=== PATIENT | male | born 1960 | race African-American/Black ===

== ENCOUNTER 2017-03-31 10:48 | Inpatient (IN) | payer OTHER ==
[~2017-03-31] VITALS: Ht 147.3 cm; Wt 95.5 kg
[2017-03-31] VITALS (15 sets, daily range): BP systolic 153–217; BP diastolic 98–153; PULSE 20–108; RESP 14–20; TEMP 96.5–97.6; O2SAT 97–100
[~2017-03-31 10:48] MED LIST: ASPI325T PO; LORT5TAB PO; NITR0.4S SL; Z.0.NO CURRENT MEDS
--- NOTE | 2017-03-31 11:25 | PD ---
HPI Chief Complaint: Cardiac Complaint Time Seen by Provider: 11:23 Travel History International Travel<30 days: No Contact w/Intl Traveler<30days: No Traveled to known affect area: No History of Present Illness HPI 56 year old male presents to the emergency department sent by his primary care physician, Dr. Barnett, for evaluation of intermittent chest pain. Patient states he has been having intermittent midsternal/epigastric pain for approximately one week. He cannot recall any aggravating or relieving factors. He saw his primary care physician, Dr. Barnett, this morning an EKG was performed. It was recommended that the patient come to the emergency department for further evaluation. He was given nitroglycerin 0.4 mg sublingually and one aspirin 325 mg by mouth. Patient states nitroglycerin did not do much for his symptoms. He states he did have some mild chest pain this morning, but states that he has no pain at this time. Patient points to more epigastric region when asked where his pain is. He denies any radiation of the pain. He denies shortness of breath. No nausea or vomiting. No diaphoresis. He reports history of ankle surgery. He states he is not currently on any prescribed medications. Patient does report drinking 2-3 beers daily. He denies any tobacco or illicit drug use. [facility] Past Medical History Medical History: Denies Significant Hx Chest Pain: Yes Diminished Hearing: No Hypertension: Yes Past Surgical History Surgical History: No Previous Surgery Social History Alcohol Use: Yes (2-3 beers daily) Tobacco Use: No Substance Use: No Allergies-Medications (Allergen,Severity, Reaction): Coded Allergies: No Known Allergies (Verified , 03/31/17) Reported Meds & Prescriptions Reported Meds & Active Scripts Active No Active Prescriptions or Reported Medications Review of Systems Except as stated in HPI: all other systems reviewed are Neg Physical Exam Narrative GENERAL: Well-nourished, well-developed male patient, afebrile. SKIN: Focused skin assessment warm/dry. HEAD: Normocephalic. Atraumatic. EYES: No scleral icterus. No injection or drainage. NECK: Supple, trachea midline. No JVD or lymphadenopathy. CARDIOVASCULAR: Regular rate and rhythm without murmurs, gallops, or rubs. RESPIRATORY: Breath sounds equal bilaterally. No accessory muscle use. Lungs sounds are clear to auscultation. GASTROINTESTINAL: Abdomen soft and nondistended. On exam, the patient has tenderness to the left upper quadrant and epigastric region to palpation. MUSCULOSKELETAL: No cyanosis, or edema. BACK: Nontender without obvious deformity. No CVA tenderness. Data Data Last Documented VS Vital Signs Date Time Temp Pulse Resp B/P Pulse Ox O2 Delivery O2 Flow Rate FiO2 03/31/17 13:12 95 14 182/123 98 Nasal Cannula 2 03/31/17 10:51 97.6 Orders Electrocardiogram (03/31/17 ) Electrocardiogram (03/31/17 11:20) Ckmb (Isoenzyme) Profile (03/31/17 11:20) Complete Blood Count With Diff (03/31/17 11:20) Comprehensive Metabolic Panel (03/31/17 11:20) Magnesium (Mg) (03/31/17 11:20) Prothrombin Time / Inr (Pt) (03/31/17 11:20) Act Partial Throm Time (Ptt) (03/31/17 11:20) Troponin I (03/31/17 11:20) Lipase (03/31/17 11:20) Chest, Single Ap (03/31/17 11:20) Ecg Monitoring (03/31/17 11:20) Bilateral Bp Monitoring (03/31/17 11:20) Iv Access Insert/Monitor (03/31/17 11:20) Oximetry (03/31/17 11:20) Oxygen Administration (03/31/17 11:20) Aspirin Chew (Aspirin Chew) (03/31/17 11:30) Sodium Chloride 0.9% Flush (Ns Flush) (03/31/17 11:30) Sodium Chlorid 0.9% 500 Ml Inj (Ns 500 M (03/31/17 11:30) Labetalol Inj (Trandate Inj) (03/31/17 12:30) CKMB (03/31/17 11:35) CKMB% (03/31/17 11:35) Admit Order (Ed Use Only) (03/31/17 13:10) Labetalol Inj (Trandate Inj) (03/31/17 13:15) Labs Laboratory Tests Test 03/31/17 11:35 White Blood Count 6.2 TH/MM3 Red Blood Count 5.01 MIL/MM3 Hemoglobin 15.1 GM/DL Hematocrit 46.0 % Mean Corpuscular Volume 91.9 FL Mean Corpuscular Hemoglobin 30.2 PG Mean Corpuscular Hemoglobin 32.9 % Concent Red Cell Distribution Width 14.4 % Platelet Count 153 TH/MM3 Mean Platelet Volume 11.6 FL Neutrophils (%) (Auto) 62.1 % Lymphocytes (%) (Auto) 31.0 % Monocytes (%) (Auto) 5.1 % Eosinophils (%) (Auto) 1.3 % Basophils (%) (Auto) 0.5 % Neutrophils # (Auto) 3.8 TH/MM3 Lymphocytes # (Auto) 1.9 TH/MM3 Monocytes # (Auto) 0.3 TH/MM3 Eosinophils # (Auto) 0.1 TH/MM3 Basophils # (Auto) 0.0 TH/MM3 CBC Comment AUTO DIFF Differential Comment AUTO DIFF CONFIRMED Platelet Estimate NORMAL Platelet Morphology Comment ENLARGED Prothrombin Time 10.7 SEC Prothromb Time International 1.0 RATIO Ratio Activated Partial 23.6 SEC Thromboplast Time Sodium Level 141 MEQ/L Potassium Level 4.3 MEQ/L Chloride Level 109 MEQ/L Carbon Dioxide Level 23.2 MEQ/L Anion Gap 9 MEQ/L Blood Urea Nitrogen 10 MG/DL Creatinine 0.92 MG/DL Estimat Glomerular Filtration 103 ML/MIN Rate Random Glucose 106 MG/DL Calcium Level 8.7 MG/DL Magnesium Level 1.5 MG/DL Total Bilirubin 0.5 MG/DL Aspartate Amino Transf 24 U/L (AST/SGOT) Alanine Aminotransferase 28 U/L (ALT/SGPT) Alkaline Phosphatase 90 U/L Total Creatine Kinase 159 U/L Creatine Kinase MB 3.0 NG/ML Troponin I 0.08 NG/ML Total Protein 7.5 GM/DL Albumin 3.3 GM/DL Lipase 118 U/L [facility] Medical Decision Making Medical Screen Exam Complete: Yes Emergency Medical Condition: Yes Medical Record Reviewed: Yes Interpretation(s) chest x-ray - CONCLUSION: 1. Advanced cardiomegaly. Differential Diagnosis Chest wall pain versus ACS versus anxiety versus pancreatitis versus diverticulitis versus pneumonia versus pneumothorax versus PE Narrative Course 56-year-old male presents to the emergency department sent by his primary care physician for evaluation of intermittent chest pain. On exam, the patient's tenderness to left upper quadrant and epigastric region on palpation. He was given nitroglycerin 1 and aspirin 325 mg by mouth. EKG shows sinus tachycardia , heart rate 122, patient has some mild ST depression in V2, with a new right bundle-branch block noted.. On exam, patient's heart rate is 90-100. CBC, CMP , CK, troponin, magnesium, lipase, PTT, PTT/INR, chest x-ray are ordered and pending. CBC shows no acute abnormality. CMP shows no acute abnormality. Lipase is 118. CK is 159. Troponin is 0.08. Magnesium is 1.5. Coags show no acute abnormality. Chest x-ray shows advanced cardiomegaly. Patient's blood pressure remained elevated while emergency department. Patient is given labetalol 10 mg IV. Due to elevated troponin, cardiology slot floor person is paged. [phone] - I spoke with Dr. Cardenas, release manager slot floor person, who will consult on patient. Due to atypical symptoms, he would like to hold off on Heparin gtt for now. Residents are paged for admission. Dr. Nguyễn accepted admission. Diagnosis Primary Impression: Chest pain Qualified Code: R07.9 - Chest pain, unspecified type Additional Impression: Elevated troponin Admitting Information Admitting Physician Requests: Admit Scripts No Active Prescriptions or Reported Lilian Sheppard Mar 31, 2017 11:24
[2017-03-31] MEDS ORDERED: ASPIRIN 81 MG CHEW TAB PO ONE (11:30)
[2017-03-31] MEDS ORDERED: SODIUM CHLORIDE 0.9% FLUSH 10 ML FLUSH IVF PRN (11:30)
[2017-03-31] MEDS ORDERED: SODIUM CHLORID 0.9% 500 ML INJ 500 ML IV ONE (11:30)
[2017-03-31 12:07] LABS: AUTOMATED NEUTROPHIL # 3.8 TH/MM3 (1.8-7.7); BASOPHIL % 0.5 % (0.0-2.0); EOSINOPHIL # 0.1 TH/MM3 (0-0.4); EOSINOPHIL % 1.3 % (0.0-4.0); LYMPHOCYTE # 1.9 TH/MM3 (1.0-4.8); MEAN CELL VOLUME 91.9 FL (80.0-100.0); MEAN CORPUSCULAR HEMOGLOBIN 30.2 PG (27.0-34.0); MEAN CORPUSCULAR HGB CONC 32.9 % (32.0-36.0); MONO % 5.1 % (0.0-8.0); NEUT % 62.1 % (16.0-70.0); PLATELET COUNT 153 TH/MM3 (150-450); RED BLOOD COUNT 5.01 MIL/MM3 (4.50-5.90); RED CELL DISTRIBUTION WIDTH 14.4 % (11.6-17.2); WHITE BLOOD COUNT 6.2 TH/MM3 (4.0-11.0)
--- NOTE | 2017-03-31 12:10 | RADRPT ---
EXAM DATE/TIME: 03/31/2017 11:35 [facility] COMPARISON: CHEST SINGLE AP, December 30, 2009, 2:21. INDICATIONS : Chest Pain/Pressure MEDICAL HISTORY : Abnormal EKG at 's office SURGICAL HISTORY : None. ENCOUNTER: Initial ACUITY: 1 day PAIN SCORE: 4/10 LOCATION: Bilateral chest FINDINGS: There is advanced cardiomegaly. There is no overt congestive failure. The lungs are clear. The osseou s structures are intact. CONCLUSION: 1. Advanced cardiomegaly. Justin Cruz MD on March 31, 2017 at 12:08 Board Certified Radiologist. This report was verified electronically.
[2017-03-31 12:12] LABS: HEMO FLAGS AUTO DIFF
[2017-03-31 12:17] LABS: APTT (PATIENT) 23.6 SEC (24.3-30.1); PROTHROMBIN TIME - PATIENT 10.7 SEC (9.8-11.6)
[2017-03-31 12:29] LABS: ALKALINE PHOSPHATASE 90 U/L (45-117); CREATINE KINASE 159 U/L (39-308); TOTAL BILIRUBIN ADULT 0.5 MG/DL (0.2-1.0)
[2017-03-31 12:30] LABS: ALT (GPT) 28 U/L (12-78); ANION GAP 9 MEQ/L (5-15); AST (GOT) 24 U/L (15-37); BICARBONATE 23.2 MEQ/L (21.0-32.0); BLOOD UREA NITROGEN 10 MG/DL (7-18); CHLORIDE 109 MEQ/L (98-107); GLOMERULAR FILTRATION RATE 103 ML/MIN (>89); MAGNESIUM 1.5 MG/DL (1.5-2.5); POTASSIUM 4.3 MEQ/L (3.5-5.1); SODIUM (NA) 141 MEQ/L (136-145)
[2017-03-31] MEDS ORDERED: LABETALOL HCL 100 MG/20 ML VIAL IV PUSH ONE ×2 (12:30→13:15)
[2017-03-31 12:42] LABS: PLATELET ESTIMATE SMEAR NORMAL (NORMAL); PLATELET MORPHOLOGY ENLARGED (NORMAL); SCAN/DIFF AUTO DIFF CONFIRMED
--- NOTE | 2017-03-31 13:31 | HHI.HP ---
[facility] Service Family Medicine Primary Care Physician No Primary Care Physician Admission Diagnosis chest pain, elevated troponin Diagnoses: International Travel<30 Days: No Contact w/Intl Traveler<30days: No Known Affected Area: No History of Present Illness 56-year-old male without a previous extensive history (however he has not seen a doctor for multiple years) presents with a one to two-week history of chest pain. He was interviewed with his sister in the room. Patient reports a history of 2 weeks of chest pain. The pain is 4 out of 10 in intensity. Nonradiating. It will last 2-3 minutes and go away. It comes on mostly when lifting objects. He typically gets this pain 2-3 times a day. Occasionally, he will get this pain while resting on his couch. He does sometimes get diaphoretic with this. His fever, chills, nausea. He has been getting short of breath with relatively minor exertion. He does not exercise regularly. (Chris Nguyễn MD R2) Review of Systems Constitutional: DENIES: Fatigue, Fever, Chills Eyes: DENIES: Blurred vision, Diplopia Ears, nose, mouth, throat: DENIES: Tinnitus, Hearing loss Respiratory: COMPLAINS OF: Shortness of breath, DENIES: Apneas, Cough Cardiovascular: COMPLAINS OF: Chest pain, DENIES: Syncope Gastrointestinal: DENIES: Abdominal pain, Black stools, Bloody stools, Constipation, Diarrhea, Nausea, Vomiting Neurologic: DENIES: Abnormal gait, Headache Psychiatric: DENIES: Anxiety, Confusion, Depression (Chris Nguyễn MD R2) Past Family Social History Past Medical History HLD Past Surgical History None Reported Medications Reported Meds & Active Scripts Active No Active Prescriptions or Reported Medications (Chris Nguyễn MD R2) Allergies: Coded Allergies: No Known Allergies (Verified , 03/31/17) Active Ordered Medications Active Medications Aspirin (Aspirin Chew) 81 mg ONCE ONCE PO; Start 03/31/17 at 11:30; Stop at 11:30; Status DC Bisacodyl (Dulcolax Supp) 10 mg DAILY PRN RECTAL; Start 03/31/17 at 14:00; Status UNV Flumazenil (Romazicon Inj) 0.2 mg Q1M PRN IV PUSH; Start 03/31/17 at 14:15; Status UNV Labetalol HCl (Trandate Inj) 10 mg ONCE ONCE IV PUSH Last administered on 12:28; Admin Dose 10 MG; Start 03/31/17 at 12:30; Stop 03/31/17 at 12:31; Status DC Labetalol HCl 10 mg 10 mg ONCE ONCE IV PUSH Last administered on 03/31/17 13: 27; Admin Dose 10 MG; Start 03/31/17 at 13:15; Stop 03/31/17 at 13:16; Status DC Lactulose (Lactulose Liq) 30 ml DAILY PRN PO; Start 03/31/17 at 14:00; Status UNV Lorazepam (Ativan Inj) 1 mg Q4H PRN IV PUSH; Start 03/31/17 at 14:15; Status UNV Lorazepam (Ativan Inj) 2 mg Q15M PRN IV PUSH; Start 03/31/17 at 14:15; Status UNV Lorazepam (Ativan Inj) 2 mg Q1H PRN IV PUSH; Start 03/31/17 at 14:15; Status UNV Lorazepam (Ativan Inj) 2 mg Q2H PRN IV PUSH; Start 03/31/17 at 14:15; Status UNV Lorazepam (Ativan) 1 mg Q4H PRN PO; Start 03/31/17 at 14:15; Status UNV Lorazepam (Ativan) 2 mg Q2H PRN PO; Start 03/31/17 at 14:15; Status UNV Magnesium Hydroxide (Milk Of Magnesia Liq) 30 ml Q12H PRN PO; Start 03/31/17 at 14:00; Status UNV Morphine Sulfate (Morphine Inj) 2 mg Q30M PRN IV; Start 03/31/17 at 14:00; Status UNV Naloxone HCl (Narcan Inj) 0.4 mg UNSCH PRN IV; Start 03/31/17 at 14:00; Status UNV Nitroglycerin (Nitrostat Sl) 0.4 mg Q5M PRN SL; Start 03/31/17 at 14:00; Status UNV Ondansetron HCl (Zofran Inj) 4 mg Q6H PRN IV; Start 03/31/17 at 14:00; Status UNV Senna/Docusate Sodium (Ashwini-Colace) 1 tab BID PO; Start 03/31/17 at 21:00; Status UNV Sennosides (Senokot) 17.2 mg Q12H PRN PO; Start 03/31/17 at 14:00; Status UNV Sodium Chloride (NS 1000 ml Inj) 1,000 ml @ 100 mls/hr Q10H IV; Start 03/31/17 at 13:56; Status UNV Sodium Chloride (NS 500 ml Inj) 500 ml @ 500 mls/hr BOLUS ONCE IV Last administered on 03/31/17t 11:50; Admin Dose 500 MLS/HR; Start 03/31/17 at 11:30 ; Stop 03/31/17 at 12:29; Status DC Sodium Chloride (NS Flush) 2 ml BID IV FLUSH; Start 03/31/17 at 21:00; Status UNV Sodium Chloride (NS Flush) 2 ml UNSCH PRN IV FLUSH; Start 03/31/17 at 14:00; Status UNV Sodium Chloride 2 ml 2 ml UNSCH PRN IVF; Start 03/31/17 at 11:30 Family History Mom: CAD at 32- Father: OK at 45-46 Brother: OK at 67 No children Social History Never smoker. Alcohjol daily. 4-5 beers a day. Lives with sister in house. Works: [employer] at [employer]. (Chris Nguyễn MD R2) Physical Exam Vital Signs Vital Signs Date Time Temp Pulse Resp B/P Pulse Ox O2 Delivery O2 Flow Rate FiO2 03/31/17 13:12 95 14 182/123 98 Nasal Cannula 2 03/31/17 12:52 190/138 03/31/17 12:52 197/135 03/31/17 12:51 97 190/138 03/31/17 11:51 100 Nasal Cannula 1 03/31/17 11:51 100 Nasal Cannula 1 03/31/17 11:03 120 16 96 Room Air 03/31/17 10:51 97.6 108 17 216/145 98 Room Air Physical Exam GENERAL: This is a pleasant male resting comfortably in bed. No acute distress. SKIN: Warm and diaphoretic. No rashes HEAD: Atraumatic. Normocephalic. No temporal or scalp tenderness. EYES: Pupils equal round and reactive. Extraocular motions intact. Conjunctival injection ENT: Nose without bleeding, purulent drainage or septal hematoma. Throat without erythema, tonsillar hypertrophy or exudate. Uvula midline. Airway patent. NECK: Trachea midline. No JVD or lymphadenopathy. Supple, nontender, no meningeal signs. CARDIOVASCULAR: Regular rate and rhythm with 1-2/6 RADHA at left sternal border RESPIRATORY: Clear to auscultation. Breath sounds equal bilaterally. No wheezes , rales, or rhonchi. GASTROINTESTINAL: Abdomen soft, non-tender, nondistended. No hepato-splenomegaly , or palpable masses. No guarding. MUSCULOSKELETAL: Extremities without clubbing, cyanosis, or edema. No joint tenderness, effusion, or edema noted. No calf tenderness. Negative Homans sign bilaterally. NEUROLOGICAL: Awake and alert x3. Cranial nerves II through XII intact. Motor and sensory grossly within normal limits. Five out of 5 muscle strength in all muscle groups. Normal speech. Laboratory Laboratory Tests Test 03/31/17 11:35 White Blood Count 6.2 Red Blood Count 5.01 Hemoglobin 15.1 Hematocrit 46.0 Mean Corpuscular Volume 91.9 Mean Corpuscular Hemoglobin 30.2 Mean Corpuscular Hemoglobin 32.9 Concent Red Cell Distribution Width 14.4 Platelet Count 153 Mean Platelet Volume 11.6 Neutrophils (%) (Auto) 62.1 Lymphocytes (%) (Auto) 31.0 Monocytes (%) (Auto) 5.1 Eosinophils (%) (Auto) 1.3 Basophils (%) (Auto) 0.5 Neutrophils # (Auto) 3.8 Lymphocytes # (Auto) 1.9 Monocytes # (Auto) 0.3 Eosinophils # (Auto) 0.1 Basophils # (Auto) 0.0 CBC Comment AUTO DIFF Differential Comment AUTO DIFF CONFIRMED Platelet Estimate NORMAL Platelet Morphology Comment ENLARGED Prothrombin Time 10.7 Prothromb Time International 1.0 Ratio Activated Partial 23.6 Thromboplast Time Sodium Level 141 Potassium Level 4.3 Chloride Level 109 Carbon Dioxide Level 23.2 Anion Gap 9 Blood Urea Nitrogen 10 Creatinine 0.92 Estimat Glomerular Filtration 103 Rate Random Glucose 106 Calcium Level 8.7 Magnesium Level 1.5 Total Bilirubin 0.5 Aspartate Amino Transf 24 (AST/SGOT) Alanine Aminotransferase 28 (ALT/SGPT) Alkaline Phosphatase 90 Total Creatine Kinase 159 Creatine Kinase MB 3.0 Troponin I 0.08 Total Protein 7.5 Albumin 3.3 Lipase 118 (Chris Nguyễn MD R2) Result Diagram: 03/31/17 1135 03/31/17 1135 Imaging Last Impressions Chest X-Ray 03/31/17 1120 Signed Impressions: Service Date/Time: Friday, March 31, 2017 11:35 - CONCLUSION: 1. Advanced cardiomegaly. Justin Cruz MD (Chris Nguyễn MD R2) Assessment and Plan Assessment and Plan 56-year-old male with atypical chest pain concerning for cardiac origin. Elevated troponin. Cardiology will be consulted. Plan as below. Code Status Full Discussed Condition With Dr. Nguyễn ED spoke with Dr. Cardenas (Chris Nguyễn MD R2) Attending Attestation Patient seen and examined. Case reviewed and discussed with the resident team. Agree with plan of care as discussed with me and documented in the resident note. (Linda Nguyễn MD) Problem List: (1) Chest pain Status: Acute Plan: Cardiology consultation, ED spoke with brass molder helper Dr. Cardenas, and currently no heparin drip Continue Aspiring 325 daily EKG shows sinus tachycardia, right bundle branch block Troponin elevated to 0.08, will trend at 1600 and 2200 Trend EKGs at 1600 and 2200 Lipid profile TSH Oxygen for sats less than 90% Morphine 2 mg IV chest pain Telemetry (2) Alcohol abuse Status: Acute Plan: [facility] protocol Multivitamin, thiamine, folic acid (3) Hypertensive urgency Status: Acute Plan: Blood pressure 216/145 on admission Patient was given labetalol 10 mg IV push 2 in the emergency room For now, labetalol 10 mg IV when necessary systolic blood pressure greater than 180, diastolic blood pressure greater than 110 (4) FEN/PPX Status: Acute Plan: Fluids: Normal saline while nothing by mouth Electrolytes: Monitor and replace as needed Nutrition: Nothing by mouth for possible cardiac catheterization Prophylaxis: Bilateral SCDs, holding heparin for possible procedure (Chris Nguyễn MD R2) Physician Certification 2 Midnight Certification Type: Admission for Inpatient Services Order for Inpatient Services The services are ordered in accordance with Medicare regulations or non- Medicare payer requirements, as applicable. In the case of services not specified as inpatient-only, they are appropriately provided as inpatient services in accordance with the 2-midnight benchmark. Estimated LOS (days): 2 days is the estimated time the patient will need to remain in the hospital, assuming treatment plan goals are met and no additional complications. Post-Hospital Plan: Not yet determined (Chris Nguyễn MD R2) Chris Nguyễn MD R2 Mar 31, 2017 13:31 Linda Nguyễn MD Mar 31, 2017 14:40
[2017-03-31] MEDS ORDERED: ONDANSETRON HCL 4 MG/2 ML VIAL IV PRN (14:00)
[2017-03-31] MEDS ORDERED: NALOXONE HCL 0.4 MG/ML AMP IV PRN (14:00)
[2017-03-31] MEDS ORDERED: SODIUM CHLORIDE 0.9% FLUSH 10 ML FLUSH IV FLUSH PRN (14:00)
[2017-03-31] MEDS ORDERED: MORPHINE SULFATE 4 MG/ML INJ IV PRN (14:00)
[2017-03-31] MEDS ORDERED: SENNOSIDES 8.6 MG TAB PO PRN (14:00)
[2017-03-31] MEDS ORDERED: BISACODYL 10 MG SUPP RECTAL PRN (14:00)
[2017-03-31] MEDS ORDERED: MAGNESIUM HYDROXIDE SUSP 30 ML CUP PO PRN (14:00)
[2017-03-31] MEDS ORDERED: LACTULOSE SYRUP 20 GM/30 ML CUP PO PRN (14:00)
[2017-03-31] MEDS ORDERED: NITROGLYCERIN 0.4 MG SL 25 TABS/BTL SL PRN ×2 (14:00→20:15)
--- NOTE | 2017-03-31 14:13 | HHI.FPPN ---
Subjective Remarks Pt. seen, examined and discussed with Dr. Alberto Nguyễn. This is a 56 yo AA male who was presenting to the [facility] Dr. Barnett this a.m. as a new patient to establish. Apparently he has been having chest pain intermittently over the past few weeks, 2-3 times daily, both with lifting and at rest, lasting a few minutes, left lower sternal border, no radiation, no nausea, no fatigue, at times associated with sweats, clearing spontaneously. He has not seen a doctor for at least two years, and had been taking a cholesterol medication in the past. No medication now. He presents with his sister with whom he lives. Hx of fractured ankle, no other surgery. Has been told in the past he has a heart murmur. Family history strongly positive for mother dying at 32 of atherosclerosis, father of ID in his 40s, brother age 67 with ID. 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 No tobacco, no illicits. Single, no children. Sedentary lifestyle. ROS: Occasional headache, mild, and some SOB at times. All other systems queried and denied. Objective Vitals Vital Signs Date Time Temp Pulse Resp B/P Pulse Ox O2 Delivery O2 Flow Rate FiO2 03/31/17 13:12 95 14 182/123 98 Nasal Cannula 2 03/31/17 12:52 190/138 03/31/17 12:52 197/135 03/31/17 12:51 97 190/138 03/31/17 11:51 100 Nasal Cannula 1 03/31/17 11:51 100 Nasal Cannula 1 03/31/17 11:03 120 16 96 Room Air 03/31/17 10:51 97.6 108 17 216/145 98 Room Air Result Diagram: 03/31/17 1135 03/31/17 1135 Other Results Laboratory Tests Test 03/31/17 11:35 White Blood Count 6.2 TH/MM3 Red Blood Count 5.01 MIL/MM3 Hemoglobin 15.1 GM/DL Hematocrit 46.0 % Mean Corpuscular Volume 91.9 FL Mean Corpuscular Hemoglobin 30.2 PG Mean Corpuscular Hemoglobin 32.9 % Concent Red Cell Distribution Width 14.4 % Platelet Count 153 TH/MM3 Mean Platelet Volume 11.6 FL Neutrophils (%) (Auto) 62.1 % Lymphocytes (%) (Auto) 31.0 % Monocytes (%) (Auto) 5.1 % Eosinophils (%) (Auto) 1.3 % Basophils (%) (Auto) 0.5 % Neutrophils # (Auto) 3.8 TH/MM3 Lymphocytes # (Auto) 1.9 TH/MM3 Monocytes # (Auto) 0.3 TH/MM3 Eosinophils # (Auto) 0.1 TH/MM3 Basophils # (Auto) 0.0 TH/MM3 CBC Comment AUTO DIFF Differential Comment AUTO DIFF CONFIRMED Platelet Estimate NORMAL Platelet Morphology Comment ENLARGED Prothrombin Time 10.7 SEC Prothromb Time International 1.0 RATIO Ratio Activated Partial 23.6 SEC Thromboplast Time Sodium Level 141 MEQ/L Potassium Level 4.3 MEQ/L Chloride Level 109 MEQ/L Carbon Dioxide Level 23.2 MEQ/L Anion Gap 9 MEQ/L Blood Urea Nitrogen 10 MG/DL Creatinine 0.92 MG/DL Estimat Glomerular Filtration 103 ML/MIN Rate Random Glucose 106 MG/DL Calcium Level 8.7 MG/DL Magnesium Level 1.5 MG/DL Total Bilirubin 0.5 MG/DL Aspartate Amino Transf 24 U/L (AST/SGOT) Alanine Aminotransferase 28 U/L (ALT/SGPT) Alkaline Phosphatase 90 U/L Total Creatine Kinase 159 U/L Creatine Kinase MB 3.0 NG/ML Troponin I 0.08 NG/ML Total Protein 7.5 GM/DL Albumin 3.3 GM/DL Lipase 118 U/L Imaging Last Impressions Chest X-Ray 03/31/17 1120 Signed Impressions: Service Date/Time: Friday, March 31, 2017 11:35 - CONCLUSION: 1. Advanced cardiomegaly. Justin Cruz MD EKG shows sinus tachycardia, BBB, hypertrophy, possible ID Objective Remarks O. CONSTITUTIONAL/GEN: obese, sweating profusely EYES: conjunctiva normal, sclerae muddy,PERRLA, EOMI. ENT: Mouth and pharynx normal. Upper and lower dentures. NECK: No cervical lymphadenopathy LUNGS: clear A-P, respiratory effort is normal. CARDIOVASCULAR: Tachycardia with RADHA heard along left sternal border and at the apex. No significant edema. GI/ABD: Obese, scant bowel sounds, nontender to palpation. NEURO: No focal deficits. SKIN: hyperpigmentation of knees anteriorly, no rashes noted. HEME/LYMPH: no bruising, petechia or significant adenopathy MUSC: back is normal in appearance. Extremities are normal in appearance. PSYCH/MENTAL STATUS: Alert and oriented x 3. A/P Assessment and Plan 56 yo AA male with chest pain, tachycardia, elevated BP, history likely hypercholesterolemia and strong family history of heart disease. Discharge Planning Will consult case mgmt. Attending Attestation Patient seen and examined. Case reviewed and discussed with the resident team. Agree with plan of care as discussed with me and documented in the resident note. Linda Nguyễn MD Mar 31, 2017 14:13
[2017-03-31] MEDS ORDERED: FLUMAZENIL 0.5 MG/5 ML VIAL IV PUSH PRN (14:15)
[2017-03-31] MEDS ORDERED: LORazepam 2 MG/ML VIAL IV PUSH PRN ×4 (14:15)
[2017-03-31] MEDS ORDERED: LORazepam 1 MG TAB PO PRN (14:15)
[2017-03-31] MEDS ORDERED: LORazepam 2 MG TAB PO PRN (14:15)
[2017-03-31] MEDS: FOLIC ACID 1 MG TAB PO SCH (15:35)
[2017-03-31] MEDS: SODIUM CHLOR 0.9% 1000 ML INJ 1,000 ML IV SCH ×2 (15:35→23:56)
[2017-03-31] MEDS: THIAMINE HCL 100 MG TAB PO SCH (15:36)
[2017-03-31] MEDS: MULTIVITAMINS/MINERALS THERAPEUTIC TAB PO SCH (18:04)
[2017-03-31] MEDS: LABETALOL HCL 100 MG/20 ML VIAL IV PUSH PRN (19:56)
[2017-03-31] MEDS: SODIUM CHLORIDE 0.9% FLUSH 10 ML FLUSH IV FLUSH SCH (19:57)
[2017-03-31] MEDS ORDERED: HEPARIN-D5W INJ 250 ML IV SCH (20:15)
--- NOTE | 2017-03-31 20:49 | MB ---
cc: JACOBY RONDON DATE OF CONSULTATION: 03/31/2017. REASON FOR CONSULTATION: Chest pain, elevated troponins. HISTORY OF PRESENT ILLNESS: 56-year-old male with past medical history significant for hypertension who was sent into the emergency department by his primary care physician for evaluation of intermittent chest discomfort for the past two weeks. The patient reports having intermediate chest pain which is sharp, non-radiating that lasts from five to ten minutes and not relieved by anything or exacerbated by exertion. In the emergency department, he EKG showed sinus rhythm with nonspecific S-T changes. The first two sets of cardiac troponins are 0.08 and 0.11. Also he had severe elevated high blood pressure. Cardiology has been consulted for further management and evaluation. REVIEW OF SYSTEMS: Negative except for the above-mentioned in the history of present illness. PAST MEDICAL HISTORY: 1. Hypertension. PAST SURGICAL HISTORY: None. SOCIAL HISTORY: Denies tobacco abuse, illicit drug use. He drinks alcohol socially. HOME MEDICATIONS: None. ALLERGIES: NO KNOWN DRUG ALLERGIES. FAMILY HISTORY: None. PHYSICAL EXAMINATION: VITAL SIGNS: Temperature 96.5, respiratory rate 20, heart rate 86, blood pressure 217/153 with a mean of 174. GENERAL: He is awake, alert and oriented times three in no acute distress. NECK: No jugular venous distention. No carotid bruits. HEART: Regular rate and rhythm. No murmurs, rubs or gallops. LUNGS: Clear to auscultation bilaterally. No wheezes, rales or rhonchi. ABDOMEN: The abdomen is soft, nontender and nondistended with positive bowel sounds. EXTREMITIES: No cyanosis or edema. Pulses throughout. DATA: CBC: Hemoglobin 15, hematocrit 46, platelet count 153,000. INR 1. Chemistry: Sodium 141, potassium 4.3, BUN 10, creatinine 0.92. Troponin 0.08 and 0.11. Albumin 3.3. IMAGING STUDIES: Chest x-ray shows cardiomegaly. EKG: EKG shows sinus tachycardia with nonspecific S-T changes. Right bundle-branch block and left anterior fascicular block. ASSESSMENT AND PLAN: This is a 56-year-old male with complaints of chest pain in the setting of a hypertensive urgency. He has been found to have mildly elevated troponin. He remains afebrile and hemodynamically stable. Characteristics of the chest pain seem atypical. Regarding ischemic workup, I understand that his severe elevated blood pressure should be controlled first and he is to get an echocardiogram to assess left ventricular systolic function. When blood pressure is controlled, we can re-evaluate for MPI vs LHC in the setting of his CAD risk factors. Recommendations: 1. Cycle cardiac markers x3 2. BB, ACEi, Statin and ASA 3. 2D Echo 4. Telemetry monitoring Thank you for the opportunity to take part in the care of this patient. Further therapy to be determined. MD ANTONIO Knutson/DOROTHY /8:20 PM /8:42 PM MTDQasim
[2017-03-31] MEDS: DOCUSATE SODIUM 50 MG/SENNA 8.6 MG TAB PO SCH (21:17)
[2017-03-31] MEDS: LISINOPRIL 5 MG TAB PO SCH (21:17)
[2017-03-31] MEDS: METOPROLOL TARTRATE 25 MG TAB PO SCH (21:17)
[2017-04-01] VITALS (19 sets, daily range): BP systolic 121–171; BP diastolic 83–121; PULSE 74–88; RESP 20; TEMP 97.4–98.5; O2SAT 92–100
[2017-04-01] MEDS: LABETALOL HCL 100 MG/20 ML VIAL IV PUSH PRN ×2 (02:15→14:00)
[2017-04-01 05:27] LABS: AUTOMATED NEUTROPHIL # 3.9 TH/MM3 (1.8-7.7); BASOPHIL % 0.6 % (0.0-2.0); EOSINOPHIL # 0.1 TH/MM3 (0-0.4); EOSINOPHIL % 1.4 % (0.0-4.0); HEMATOCRIT 41.5 % (39.0-51.0); LYMPH % 28.8 % (9.0-44.0); LYMPHOCYTE # 1.8 TH/MM3 (1.0-4.8); MEAN CELL VOLUME 93.5 FL (80.0-100.0); MEAN CORPUSCULAR HEMOGLOBIN 30.3 PG (27.0-34.0); MEAN CORPUSCULAR HGB CONC 32.4 % (32.0-36.0); MONO % 5.6 % (0.0-8.0); NEUT % 63.6 % (16.0-70.0); PLATELET COUNT 127 TH/MM3 (150-450); RED BLOOD COUNT 4.44 MIL/MM3 (4.50-5.90); RED CELL DISTRIBUTION WIDTH 14.4 % (11.6-17.2); WHITE BLOOD COUNT 6.1 TH/MM3 (4.0-11.0)
[2017-04-01 05:34] LABS: HEMO FLAGS AUTO DIFF
[2017-04-01 05:43] LABS: APTT (PATIENT) 29.3 SEC (24.3-30.1)
[2017-04-01 05:54] LABS: ALT (GPT) 21 U/L (12-78); ANION GAP 11 MEQ/L (5-15); AST (GOT) 17 U/L (15-37); BICARBONATE 21.5 MEQ/L (21.0-32.0); BLOOD UREA NITROGEN 10 MG/DL (7-18); CHLORIDE 112 MEQ/L (98-107); GLOMERULAR FILTRATION RATE 102 ML/MIN (>89); SODIUM (NA) 144 MEQ/L (136-145)
[2017-04-01 05:57] LABS: ALKALINE PHOSPHATASE 70 U/L (45-117); HDL CHOLESTEROL 58.6 MG/DL (40.0-60.0); TOTAL BILIRUBIN ADULT 1.1 MG/DL (0.2-1.0)
[2017-04-01] MEDS: ISOSORBIDE MONONITRATE 30 MG TAB PO SCH (06:30)
[2017-04-01 07:13] LABS: PLATELET ESTIMATE SMEAR LOW (NORMAL); PLATELET MORPHOLOGY ENLARGED (NORMAL); SCAN/DIFF AUTO DIFF CONFIRMED
[2017-04-01] MEDS: DOCUSATE SODIUM 50 MG/SENNA 8.6 MG TAB PO SCH ×2 (08:52→21:00)
[2017-04-01] MEDS: ASPIRIN EC 81 MG TABEC PO SCH (08:52)
[2017-04-01] MEDS: FOLIC ACID 1 MG TAB PO SCH (08:52)
[2017-04-01] MEDS: METOPROLOL TARTRATE 25 MG TAB PO SCH ×2 (08:53→21:00)
[2017-04-01] MEDS: LISINOPRIL 5 MG TAB PO SCH (08:53)
[2017-04-01] MEDS: THIAMINE HCL 100 MG TAB PO SCH (08:53)
[2017-04-01] MEDS: MULTIVITAMINS/MINERALS THERAPEUTIC TAB PO SCH (08:53)
[2017-04-01] MEDS: SODIUM CHLORIDE 0.9% FLUSH 10 ML FLUSH IV FLUSH SCH ×2 (08:56→21:00)
[2017-04-01] MEDS: SODIUM CHLOR 0.9% 1000 ML INJ 1,000 ML IV SCH (08:57)
[2017-04-01] MEDS ORDERED: ASPIRIN 325 MG TAB PO SCH (09:00)
[2017-04-01] MEDS ORDERED: PNEUMOCOCCAL POLYVALENT INJ 25 MCG/0.5 ML SYR IM ONE (10:00)
--- NOTE | 2017-04-01 10:24 | HHI.FPPN ---
Subjective Remarks Patient has no complaints this morning. He denies chest pain. Denies fever, chills, nausea, vomiting, shortness of breath. (Chris Nguyễn MD R2) Objective Vitals Vital Signs Date Time Temp Pulse Resp B/P Pulse Ox O2 Delivery O2 Flow Rate FiO2 04/01/17 09:13 98 2.00 04/01/17 07:29 98 Room Air 04/01/17 07:29 97.8 76 20 150/99 98 04/01/17 06:00 74 04/01/17 05:00 74 04/01/17 04:00 Nasal Cannula 2.00 04/01/17 04:00 74 04/01/17 04:00 98.4 77 20 169/107 92 04/01/17 03:00 74 04/01/17 02:23 125/95 04/01/17 02:19 156/104 04/01/17 02:00 74 04/01/17 01:30 171/114 04/01/17 01:00 74 04/01/17 00:00 98.5 83 20 161/121 100 04/01/17 00:00 82 04/01/17 00:00 Nasal Cannula 2.00 03/31/17 23:27 164/113 03/31/17 23:00 80 03/31/17 22:00 84 03/31/17 20:00 95 03/31/17 19:46 97 Nasal Cannula 2.00 03/31/17 19:26 96.5 80 20 217/153 97 03/31/17 19:26 Nasal Cannula 2.00 03/31/17 18:45 86 16 162/98 97 Nasal Cannula 2 03/31/17 17:30 83 16 162/112 98 Nasal Cannula 2 03/31/17 15:15 85 16 156/115 99 Nasal Cannula 2 03/31/17 14:55 162/105 03/31/17 13:12 95 14 182/123 98 Nasal Cannula 2 03/31/17 12:52 190/138 03/31/17 12:52 197/135 03/31/17 12:51 97 190/138 03/31/17 11:51 100 Nasal Cannula 1 03/31/17 11:51 100 Nasal Cannula 1 03/31/17 11:03 120 16 96 Room Air 03/31/17 10:51 97.6 108 17 216/145 98 Room Air I/O 03/31/17 03/31/17 03/31/17 04/01/17 04/01/17 04/01/17 06:59 14:59 22:59 06:59 14:59 22:59 Intake Total 1285 ml Balance 1285 ml Intake Oral 120 ml IV Total 1165 ml # Voids 1 (Chris Nguyễn MD R2) Result Diagram: 04/01/17 0334 04/01/17 0334 Objective Remarks O. CONSTITUTIONAL/GEN: obese, no acute distress. EYES: conjunctiva normal, sclerae injection,PERRLA, EOMI. ENT: Mouth and pharynx normal. Upper and lower dentures. NECK: No cervical lymphadenopathy LUNGS: clear A-P, respiratory effort is normal. CARDIOVASCULAR: Regular rate and rhythm with RADHA heard along left sternal border and at the apex. No significant edema. GI/ABD: Obese, scant bowel sounds, nontender to palpation. NEURO: No focal deficits. SKIN: hyperpigmentation of knees anteriorly, no rashes noted. HEME/LYMPH: no bruising, petechia or significant adenopathy MUSC: back is normal in appearance. Extremities are normal in appearance. PSYCH/MENTAL STATUS: Alert and oriented x 3. (Chris Nguyễn MD R2) A/P Assessment and Plan 56-year-old male with atypical chest pain concerning for cardiac origin. Elevated troponin. Cardiology consultation, Dr. Cardenas Discharge Planning Will consult case mgmt. (Chris Nguyễn MD R2) Attending Attestation Patient seen and examined. Case reviewed and discussed with the resident team. Agree with plan of care as discussed with me and documented in the resident note. (Linda Nguyễn MD) Problem List: (1) Chest pain Status: Acute Plan: Cardiology consultation, Dr. Cardenas Continue Aspiring 81 milligrams daily Continue Lipitor Continue heparin drip Blood pressure management as below Nothing by mouth for possible procedure, if no procedure, cardiac diet Troponin trended 0.08, 0.11, 0.11 LDL elevated to 127 TSH within normal limits Oxygen for sats less than 90% Morphine 2 mg IV chest pain Telemetry (2) Alcohol abuse Status: Acute Plan: [facility] protocol Multivitamin, thiamine, folic acid (3) Hypertensive urgency Status: Acute Plan: Blood pressure 216/145 on admission Continue medications per cardiology: Lisinopril 10 mg daily, metoprolol 25 mg by mouth twice a day, labetalol 10 mg IV when necessary systolic blood pressure greater than 180 (4) FEN/PPX Status: Acute Plan: Fluids: Normal saline while nothing by mouth Electrolytes: Monitor and replace as needed Nutrition: Nothing by mouth for possible cardiac catheterization, if no procedure, cardiac diet Prophylaxis: Heparin drip per cardiology (Chris Nguyễn MD R2) Chris Nguyễn MD R2 Apr 01, 2017 10:24 Linda Nguyễn MD Apr 01, 2017 11:44
--- NOTE | 2017-04-01 10:37 | EKG ---
Date Performed: 03/31/2017 Time Performed: 18:11:10 PTAGE: 56 years EKG: Sinus rhythm LEFT ATRIAL ENLARGEMENT RIGHT BUNDLE BRANCH BLOCK LEFT ANTERIOR FASCICULAR BLOCK POSSIBLE LEFT VENTR ICULAR HYPERTROPHY ABNORMAL ECG PREVIOUS TRACING : 03/31/2017 11.27 DOCTOR: Maicol Varma Interpretating Date/Time 04/01/2017 10:35:33
--- NOTE | 2017-04-01 10:38 | EKG ---
Date Performed: 03/31/2017 Time Performed: 11:27:32 PTAGE: 56 years EKG: SINUS TACHYCARDIA WITH OCCASIONAL VENTRICULAR PREMATURE COMPLEXES LEFT ATRIAL ENLARGEMENT R IGHT BUNDLE BRANCH BLOCK LEFT ANTERIOR FASCICULAR BLOCK LEFT VENTRICULAR HYPERTROPHY AND ST-T CHANGE ABNORMAL ECG PREVIOUS TRACING : 03/31/2017 11.03 DOCTOR: Maicol Varma Interpretating Date/Time 04/01/2017 10:36:18
--- NOTE | 2017-04-01 10:39 | EKG ---
Date Performed: 03/31/2017 Time Performed: 11:03:18 PTAGE: 56 years EKG: ATRIAL FLUTTER/TACHYCARDIA WITH RAPID VENTRICULAR RESPONSE RIGHT BUNDLE BRANCH BLOCK LEFT A NTERIOR FASCICULAR BLOCK LEFT VENTRICULAR HYPERTROPHY AND ST-T CHANGE ABNORMAL ECG INTERPRETATION [facility] ED ON A DEFAULT AGE OF 39 YEARS PREVIOUS TRACING : 12/30/2009 01.43 DOCTOR: Maicol Varma Interpretating Date/Time 04/01/2017 10:36:42
--- NOTE | 2017-04-01 11:33 | PD.CARD.PN ---
Subjective Subjective Remarks no cv complaints Uncontrolled HTN Objective Medications Current Medications Medications (Trade) Dose Ordered Sig/Taylor Route Start Time Stop Time Status Last Admin Sodium Chloride 2 ml 2 ml UNSCH PRN IVF 03/31/17 11:30 (NS 1000 ml Inj) 1,000 ml @ 100 mls/hr Q10H IV 03/31/17 13:56 04/01/17 08:57 (NS Flush) 2 ml UNSCH PRN IV FLUSH 03/31/17 14:00 03/31/17 21:18 (NS Flush) 2 ml BID IV FLUSH 03/31/17 21:00 04/01/17 08:56 (Narcan Inj) 0.4 mg UNSCH PRN IV 03/31/17 14:00 (Ashwini-Colace) 1 tab BID PO 03/31/17 21:00 04/01/17 08:52 (Milk Of Magnesia Liq) 30 ml Q12H PRN PO 03/31/17 14:00 (Senokot) 17.2 mg Q12H PRN PO 03/31/17 14:00 (Dulcolax Supp) 10 mg DAILY PRN RECTAL 03/31/17 14:00 (Lactulose Liq) 30 ml DAILY PRN PO 03/31/17 14:00 (Morphine Inj) 2 mg Q30M PRN IV 03/31/17 14:00 (Zofran Inj) 4 mg Q6H PRN IV 03/31/17 14:00 (Romazicon Inj) 0.2 mg Q1M PRN IV PUSH 03/31/17 14:15 (Ativan) 1 mg Q4H PRN PO 03/31/17 14:15 (Ativan Inj) 1 mg Q4H PRN IV PUSH 03/31/17 14:15 (Ativan) 2 mg Q2H PRN PO 03/31/17 14:15 (Ativan Inj) 2 mg Q2H PRN IV PUSH 03/31/17 14:15 (Ativan Inj) 2 mg Q1H PRN IV PUSH 03/31/17 14:15 (Ativan Inj) 2 mg Q15M PRN IV PUSH 03/31/17 14:15 (Folate) 1 mg DAILY PO 03/31/17 14:15 04/05/17 14:14 04/01/17 08:52 (Vitamin B1) 100 mg DAILY PO 03/31/17 14:15 04/01/17 08:53 (Theragran M Tab) 1 tab DAILY PO 03/31/17 15:00 04/05/17 14:59 04/01/17 08:53 (Trandate Inj) 10 mg Q4H PRN IV PUSH 03/31/17 14:30 04/01/17 02:15 (Ecotrin Ec) 81 mg DAILY PO 04/01/17 09:00 04/01/17 08:52 (Nitrostat Sl) 0.4 mg Q5M PRN SL 03/31/17 20:15 (Lopressor) 25 mg BID PO 03/31/17 21:00 04/01/17 08:53 (Prinivil) 10 mg DAILY PO 03/31/17 21:00 04/01/17 08:53 Atorvastatin Calcium 80 mg 80 mg HS PO 04/01/17 21:00 (Heparin-D5W Inj) 250 ml @ 0 mls/hr TITRATE IV 03/31/17 20:15 03/31/17 22:16 (Imdur) 30 mg DAILY@07 PO 04/01/17 07:00 04/01/17 06:30 Vital Signs / I&O Vital Signs Date Time Temp Pulse Resp B/P Pulse Ox O2 Delivery O2 Flow Rate FiO2 04/01/17 11:15 97.4 81 20 160/110 99 04/01/17 09:13 98 2.00 04/01/17 07:29 98 Room Air 04/01/17 07:29 97.8 76 20 150/99 98 04/01/17 06:00 74 04/01/17 05:00 74 04/01/17 04:00 Nasal Cannula 2.00 04/01/17 04:00 74 04/01/17 04:00 98.4 77 20 169/107 92 04/01/17 03:00 74 04/01/17 02:23 125/95 04/01/17 02:19 156/104 04/01/17 02:00 74 04/01/17 01:30 171/114 04/01/17 01:00 74 04/01/17 00:00 98.5 83 20 161/121 100 04/01/17 00:00 82 04/01/17 00:00 Nasal Cannula 2.00 03/31/17 23:27 164/113 03/31/17 23:00 80 03/31/17 22:00 84 03/31/17 20:00 95 03/31/17 19:46 97 Nasal Cannula 2.00 03/31/17 19:26 96.5 80 20 217/153 97 03/31/17 19:26 Nasal Cannula 2.00 03/31/17 18:45 86 16 162/98 97 Nasal Cannula 2 03/31/17 17:30 83 16 162/112 98 Nasal Cannula 2 03/31/17 15:15 85 16 156/115 99 Nasal Cannula 2 03/31/17 14:55 162/105 03/31/17 13:12 95 14 182/123 98 Nasal Cannula 2 03/31/17 12:52 190/138 03/31/17 12:52 197/135 03/31/17 12:51 97 190/138 03/31/17 11:51 100 Nasal Cannula 1 03/31/17 11:51 100 Nasal Cannula 1 I/O 03/31/17 03/31/17 03/31/17 04/01/17 04/01/17 04/01/17 07:00 15:00 23:00 07:00 15:00 23:00 Intake Total 1285 ml Balance 1285 ml Intake Oral 120 ml IV Total 1165 ml # Voids 1 Physical Exam GENERAL: Well-nourished, well-developed patient. SKIN: Warm and dry. HEAD: Normocephalic. EYES: No scleral icterus. No injection or drainage. NECK: Supple, trachea midline. No JVD or lymphadenopathy. CARDIOVASCULAR: Regular rate and rhythm without murmurs, gallops, or rubs. RESPIRATORY: Breath sounds equal bilaterally. No accessory muscle use. GASTROINTESTINAL: Abdomen soft, non-tender, nondistended. EXTREMITIES: No cyanosis, or edema. NEUROLOGICAL: Awake, alert, and oriented x 3. Non-focal. Laboratory Laboratory Tests Test 03/31/17 03/31/17 04/01/17 04/01/17 11:35 17:55 00:00 03:15 White Blood Count 6.2 TH/MM3 Red Blood Count 5.01 MIL/MM3 Hemoglobin 15.1 GM/DL Hematocrit 46.0 % Mean Corpuscular Volume 91.9 FL Mean Corpuscular Hemoglobin 30.2 PG Mean Corpuscular Hemoglobin 32.9 % Concent Red Cell Distribution Width 14.4 % Platelet Count 153 TH/MM3 Mean Platelet Volume 11.6 FL Neutrophils (%) (Auto) 62.1 % Lymphocytes (%) (Auto) 31.0 % Monocytes (%) (Auto) 5.1 % Eosinophils (%) (Auto) 1.3 % Basophils (%) (Auto) 0.5 % Neutrophils # (Auto) 3.8 TH/MM3 Lymphocytes # (Auto) 1.9 TH/MM3 Monocytes # (Auto) 0.3 TH/MM3 Eosinophils # (Auto) 0.1 TH/MM3 Basophils # (Auto) 0.0 TH/MM3 CBC Comment AUTO DIFF Differential Comment AUTO DIFF CONFIRMED Platelet Estimate NORMAL Platelet Morphology Comment ENLARGED Prothrombin Time 10.7 SEC Prothromb Time International 1.0 RATIO Ratio Activated Partial 23.6 SEC 31.0 SEC Thromboplast Time Sodium Level 141 MEQ/L Potassium Level 4.3 MEQ/L Chloride Level 109 MEQ/L Carbon Dioxide Level 23.2 MEQ/L Anion Gap 9 MEQ/L Blood Urea Nitrogen 10 MG/DL Creatinine 0.92 MG/DL Estimat Glomerular Filtration 103 ML/MIN Rate Random Glucose 106 MG/DL Calcium Level 8.7 MG/DL Magnesium Level 1.5 MG/DL Total Bilirubin 0.5 MG/DL Aspartate Amino Transf 24 U/L (AST/SGOT) Alanine Aminotransferase 28 U/L (ALT/SGPT) Alkaline Phosphatase 90 U/L Total Creatine Kinase 159 U/L Creatine Kinase MB 3.0 NG/ML Troponin I 0.08 NG/ML 0.11 NG/ML 0.11 NG/ML Total Protein 7.5 GM/DL Albumin 3.3 GM/DL Lipase 118 U/L Thyroid Stimulating Hormone 1.270 uIU/ML 3rd Gen Test 04/01/17 03:34 White Blood Count 6.1 TH/MM3 Red Blood Count 4.44 MIL/MM3 Hemoglobin 13.4 GM/DL Hematocrit 41.5 % Mean Corpuscular Volume 93.5 FL Mean Corpuscular Hemoglobin 30.3 PG Mean Corpuscular Hemoglobin 32.4 % Concent Red Cell Distribution Width 14.4 % Platelet Count 127 TH/MM3 Mean Platelet Volume 11.0 FL Neutrophils (%) (Auto) 63.6 % Lymphocytes (%) (Auto) 28.8 % Monocytes (%) (Auto) 5.6 % Eosinophils (%) (Auto) 1.4 % Basophils (%) (Auto) 0.6 % Neutrophils # (Auto) 3.9 TH/MM3 Lymphocytes # (Auto) 1.8 TH/MM3 Monocytes # (Auto) 0.3 TH/MM3 Eosinophils # (Auto) 0.1 TH/MM3 Basophils # (Auto) 0.0 TH/MM3 CBC Comment AUTO DIFF Differential Comment AUTO DIFF CONFIRMED Platelet Estimate LOW Platelet Morphology Comment ENLARGED Activated Partial 29.3 SEC Thromboplast Time Sodium Level 144 MEQ/L Potassium Level 4.0 MEQ/L Chloride Level 112 MEQ/L Carbon Dioxide Level 21.5 MEQ/L Anion Gap 11 MEQ/L Blood Urea Nitrogen 10 MG/DL Creatinine 0.93 MG/DL Estimat Glomerular Filtration 102 ML/MIN Rate Random Glucose 102 MG/DL Calcium Level 8.2 MG/DL Total Bilirubin 1.1 MG/DL Aspartate Amino Transf 17 U/L (AST/SGOT) Alanine Aminotransferase 21 U/L (ALT/SGPT) Alkaline Phosphatase 70 U/L Total Protein 6.3 GM/DL Albumin 2.9 GM/DL Triglycerides Level 105 MG/DL Cholesterol Level 207 MG/DL LDL Cholesterol 127 MG/DL HDL Cholesterol 58.6 MG/DL Cholesterol/HDL Ratio 3.53 RATIO Assessment and Plan Problem List: (1) Hypertensive urgency Assessment and Plan: troponin likely secondary to HTN urgency Cont aggressive HTN management d/c heparin drip echo pending Get MPI (2) Elevated troponin (3) Chest pain Jaylon Berry MD Apr 01, 2017 11:33
[2017-04-01] MEDS: NIFEdipine 30 MG SUSTAINED RELEASE TAB PO SCH (11:58)
[2017-04-01 14:16] LABS: APTT (PATIENT) 25.9 SEC (24.3-30.1)
[2017-04-01] MEDS: ATORVASTATIN 80 MG TAB PO SCH (21:00)
[2017-04-02] VITALS (23 sets, daily range): BP systolic 128–159; BP diastolic 88–108; PULSE 71–88; RESP 16–18; TEMP 97.4–97.8; O2SAT 97–98
[2017-04-02] MEDS: ISOSORBIDE MONONITRATE 30 MG TAB PO SCH (07:00)
[2017-04-02] MEDS ORDERED: ASPI-99 PO (07:29)
[2017-04-02] MEDS ORDERED: NIFE30TA8 PO (07:29)
[2017-04-02] MEDS ORDERED: ATOR1TAB18 PO (07:29)
[2017-04-02] MEDS ORDERED: LISI-519 PO (07:29)
[2017-04-02] MEDS ORDERED: METO25TA3 PO (07:29)
--- NOTE | 2017-04-02 07:30 | HHI.DCPOC ---
Discharge Care Plan Diagnosis: (1) Hypertensive urgency (2) Chest pain (3) Elevated troponin Goals to Promote Your Health * To prevent worsening of your condition and complications * To maintain your health at the optimal level Directions to Meet Your Goals Take your medications as prescribed Follow your dietary instruction Follow activity as directed Keep your appointments as scheduled Take your immunizations and boosters as scheduled If your symptoms worsen call your PCP, if no PCP go to Urgent Care Center or Emergency Room Smoking is Dangerous to Your Health. Avoid second hand smoke Call the 24-hour hour crisis hotline for domestic abuse at Chris Nguyễn MD R2 Apr 02, 2017 07:29
[2017-04-02] MEDS: FOLIC ACID 1 MG TAB PO SCH (08:49)
[2017-04-02] MEDS: THIAMINE HCL 100 MG TAB PO SCH (08:50)
[2017-04-02] MEDS: SODIUM CHLORIDE 0.9% FLUSH 10 ML FLUSH IV FLUSH SCH ×2 (08:50→20:38)
[2017-04-02] MEDS: MULTIVITAMINS/MINERALS THERAPEUTIC TAB PO SCH (08:50)
[2017-04-02] MEDS: LISINOPRIL 20 MG TAB PO SCH (08:50)
[2017-04-02] MEDS: METOPROLOL TARTRATE 25 MG TAB PO SCH ×2 (08:50→20:37)
[2017-04-02] MEDS: NIFEdipine 30 MG SUSTAINED RELEASE TAB PO SCH (08:50)
[2017-04-02] MEDS: DOCUSATE SODIUM 50 MG/SENNA 8.6 MG TAB PO SCH ×2 (08:50→20:37)
[2017-04-02] MEDS: ASPIRIN EC 81 MG TABEC PO SCH (08:50)
--- NOTE | 2017-04-02 08:59 | HHI.FPPN ---
Subjective Remarks Patient denies chest pain, fever, chills, nausea, vomiting. He voices understanding that he will need to be on multiple medications at discharge. He understands these medications are for blood pressure management and cardiovascular heart disease prevention.. 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 (Chris Nguyễn MD R2) Objective Vitals Vital Signs Date Time Temp Pulse Resp B/P Pulse Ox O2 Delivery O2 Flow Rate FiO2 04/02/17 08:31 78 04/02/17 07:20 97.7 80 18 157/108 98 04/02/17 07:20 98 Room Air 04/02/17 07:20 80 04/02/17 06:00 77 04/02/17 05:00 71 04/02/17 04:00 88 04/02/17 03:00 96 Room Air 04/02/17 03:00 72 04/02/17 02:00 71 04/01/17 23:00 81 04/01/17 23:00 97.4 81 20 121/83 96 04/01/17 23:00 97 Room Air 04/01/17 22:00 80 04/01/17 21:00 150/98 04/01/17 21:00 83 04/01/17 20:00 88 04/01/17 19:06 21 04/01/17 19:00 84 04/01/17 19:00 97 Room Air 04/01/17 19:00 97.7 87 20 160/112 97 04/01/17 15:22 97.9 80 20 157/109 96 04/01/17 15:22 96 Room Air 04/01/17 11:15 97.4 81 20 160/110 99 04/01/17 09:13 98 2.00 I/O 04/01/17 04/01/17 04/01/17 04/02/17 04/02/17 04/02/17 07:00 15:00 23:00 07:00 15:00 23:00 Intake Total 1285 ml 818 ml Balance 1285 ml 818 ml Intake Oral 120 ml 240 ml IV Total 1165 ml 578 ml # Voids 1 3 (Chris Nguyễn MD R2) Result Diagram: 04/01/17 0334 04/01/17 0334 Objective Remarks O. CONSTITUTIONAL/GEN: obese, no acute distress. EYES: conjunctiva normal, sclerae injection,PERRLA, EOMI. ENT: Mouth and pharynx normal. Upper and lower dentures. NECK: No cervical lymphadenopathy LUNGS: clear A-P, respiratory effort is normal. CARDIOVASCULAR: Regular rate and rhythm with RADHA heard along left sternal border and at the apex. No significant edema. GI/ABD: Obese, scant bowel sounds, nontender to palpation. NEURO: No focal deficits. SKIN: hyperpigmentation of knees anteriorly, no rashes noted. HEME/LYMPH: no bruising, petechia or significant adenopathy MUSC: back is normal in appearance. Extremities are normal in appearance. PSYCH/MENTAL STATUS: Alert and oriented x 3. (Chris Nguyễn MD R2) A/P Assessment and Plan 56-year-old male with atypical chest pain concerning for cardiac origin. Elevated troponin. Cardiology consultation, Dr. Cardenas Discharge Planning Possibly today pending echo and cardiology clearance (Chris Nguyễn MD R2) Attending Attestation Patient seen and examined. Case reviewed and discussed with the resident team. Agree with plan of care as discussed with me and documented in the resident note. (Linda Nguyễn MD) Problem List: (1) Chest pain Status: Acute Plan: Cardiology consultation, Dr. Cardenas Continue Aspiring 81 milligrams daily Continue Lipitor Blood pressure management as below Heart healthy diet LDL elevated to 127 TSH within normal limits Oxygen for sats less than 90% Morphine 2 mg IV chest pain Telemetry (2) Alcohol abuse Status: Acute Plan: [facility] protocol Multivitamin, thiamine, folic acid (3) Hypertensive urgency Status: Acute Plan: Blood pressure 216/145 on admission Continue medications per cardiology: Lisinopril 10 mg daily, metoprolol 25 mg by mouth twice a day, Procardia 30 mg daily Echo pending (4) FEN/PPX Status: Acute Plan: Fluids: Tolerating by mouth Electrolytes: Monitor and replace as needed Nutrition: Heart healthy diet Prophylaxis: Bilateral SCDs, ambulation (Chris Nguyễn MD R2) Chris Nguyễn MD R2 Apr 02, 2017 08:59 Linda Nguyễn MD Apr 02, 2017 10:35
[2017-04-02 10:32] LABS: AUTOMATED NEUTROPHIL # 4.1 TH/MM3 (1.8-7.7); BASOPHIL # 0.1 TH/MM3 (0-0.2); EOSINOPHIL # 0.1 TH/MM3 (0-0.4); EOSINOPHIL % 1.9 % (0.0-4.0); HEMATOCRIT 40.7 % (39.0-51.0); LYMPH % 22.3 % (9.0-44.0); LYMPHOCYTE # 1.3 TH/MM3 (1.0-4.8); MEAN CORPUSCULAR HEMOGLOBIN 30.7 PG (27.0-34.0); MONO % 6.9 % (0.0-8.0); NEUT % 67.9 % (16.0-70.0); PLATELET COUNT 114 TH/MM3 (150-450); RED BLOOD COUNT 4.38 MIL/MM3 (4.50-5.90); RED CELL DISTRIBUTION WIDTH 14.5 % (11.6-17.2)
[2017-04-02 10:40] LABS: HEMO FLAGS AUTO DIFF
[2017-04-02 11:06] LABS: ALT (GPT) 18 U/L (12-78); ANION GAP 10 MEQ/L (5-15); AST (GOT) 15 U/L (15-37); BICARBONATE 21.4 MEQ/L (21.0-32.0); BLOOD UREA NITROGEN 10 MG/DL (7-18); CHLORIDE 112 MEQ/L (98-107); GLOMERULAR FILTRATION RATE 100 ML/MIN (>89); MAGNESIUM 1.4 MG/DL (1.5-2.5); POTASSIUM 4.1 MEQ/L (3.5-5.1); SODIUM (NA) 143 MEQ/L (136-145)
[2017-04-02 11:08] LABS: ALKALINE PHOSPHATASE 66 U/L (45-117); TOTAL BILIRUBIN ADULT 0.9 MG/DL (0.2-1.0)
[2017-04-02 11:12] LABS: PLATELET ESTIMATE SMEAR LOW (NORMAL); PLATELET MORPHOLOGY ENLARGED (NORMAL); SCAN/DIFF AUTO DIFF CONFIRMED
--- NOTE | 2017-04-02 12:45 | EKG ---
Date Performed: 03/31/2017 Time Performed: 22:58:16 PTAGE: 56 years EKG: Sinus rhythm Left axis deviation RBBB with left anterior fascicular block Left ventricular hypertrophy Lateral T wave changes are probably due to ventricular hypertrophy Compared to prior tracing no significant breezy nge Abnormal ECG PREVIOUS TRACING : 03/31/2017 18.11 DOCTOR: Leonard Desai Interpretating Date/Time 04/02/2017 12:37:12
[2017-04-02] MEDS ORDERED: REGADENOSON INJ 0.4 MG/5 ML SYR ONE (14:48)
--- NOTE | 2017-04-02 16:11 | RADRPT ---
EXAM DATE/TIME: 04/02/2017 14:10 [place] COMPARISON: No previous studies available for comparison. INDICATIONS : Chest pain for 1 day. Angina. Coronary atherosclerosis. DOSE: 25.8 mCi Tc99m Myoview at stress. 8.2 mCi Tc99m Myoview at rest. 0.4 mg Lexiscan STRESS SYMPTOMS: None. EJECTION FRACTION: 35% MEDICAL HISTORY : Hypercholesterolemia. Hypertension. SURGICAL HISTORY : None. ENCOUNTER: Initial ACUITY: 1 day PAIN SCALE: 2/10 LOCATION: Midsternal chest TECHNIQUE: The patient underwent pharmacologic stress with infusion of prescribed dose. Continuous ECG tracing was monitored during stress. Gated SPECT imaging was performed after stress and conventional SPECT i maging was performed at rest. The examination was performed on a SPECT/CT scanner, both attenuation and non-corrected datasets were reviewed. FINDINGS: DISTRIBUTION: The maximum perfused segment at stress is in the septal wall. PERFUSION STUDY: The pattern of perfusion at stress demonstrates fixed defects in the anterior wall, posterior basal a nd inferior wall without any significant ischemia. GATED STUDY: There is global hypokinesis. CONCLUSION: No appreciable ischemia and reduction in ejection fraction. RISK CATEGORY: Low (<1% Annual Mortality Rate) Lucrecia Marcial MD on April 02, 2017 at 16:08 Board Certified Radiologist. This report was verified electronically.
--- NOTE | 2017-04-02 19:13 | ECHRPT ---
Indication: CORONARY ARTHEROSCLEROSIS CONCLUSIONS The left ventricular systolic function is [id number] reduced with an estimated ejection fra ction in the range of 35-40%. Global hypokinesis. Mildly dilated left ventricle. Mild concentric left ventricular hypertrophy. left atrial size is moderately dilated. Mild to moderate thickening of the mitral valve leaflets. There is possibly some more thickening and bowing of the anterior leaflet that may be causing the moderate to severe posterior jet of mitral regurgitation. Mild thickening of the tricuspid valve leaflets. There is moderate to severe tricuspid valve regurgitation. There is estimated mild pulmonary hypertension present (range 40-50 mmHg). BP: / HR: Rhythm: Sinus MEASUREMENTS (Male / Female) Normal Values Technical Quality:Fair 2D ECHO LV Diastolic Diameter PLAX 5.8 cm 4.2 - 5.9 / 3.9 - 5.3 cm LV Systolic Diameter PLAX 5.0 cm IVS Diastolic Thickness 1.3 cm 0.6 - 1.0 / 0.6 - 0.9 cm LVPW Diastolic Thickness 1.3 cm 0.6 - 1.0 / 0.6 - 0.9 cm LV Relative Wall Thickness 0.4 LVOT Diameter 2.0 cm Aortic Root Diameter 2.8 cm LA Systolic Diameter LX 4.9 cm 3.0 - 4.0 / 2.7 - 3.8 cm LA Volume Index 69.3 cm/m 16 - 28 cm/m M-MODE AV Cusp Separation MM 2.2 cm DOPPLER AV Peak Velocity 130.0 cm/s AV Peak Gradient 6.8 mmHg AV Mean Gradient 3.0 mmHg AV Velocity Time Integral 19.9 cm LVOT Peak Velocity 97.8 cm/s LVOT Peak Gradient 3.8 mmHg LVOT Velocity Time Integral 13.0 cm AV Area Cont Eq vti 2.1 cm AV Area Cont Eq pk 2.4 cm LV E' Lateral Velocity 6.7 cm/s LV E' Septal Velocity 4.4 cm/s TR Peak Velocity 295.0 cm/s TR Peak Gradient 34.8 mmHg PV Peak Velocity 71.4 cm/s PV Peak Gradient 2.0 mmHg FINDINGS LEFT VENTRICLE Mildly dilated left ventricle. Mild concentric left ventricular hypertrophy. The left ventricular systolic function is [id number] reduced with an estimated ejection fra ction in the range of 35-40%. Doppler parameters are consistent with impaired left ventricular relaxtion (grade 1 diastolic dysfun ction). LEFT ATRIUM The left atrial size is moderately dilated. MITRAL VALVE Mild to moderate thickening of the mitral valve leaflets. There is possibly some more thickening and bowing of the anterior leaflet that may be causing the moderate to severe posterior jet of mitral regurgitation. TRICUSPID VALVE Mild thickening of the tricuspid valve leaflets. There is moderate to severe tricuspid valve regurgitation. There is estimated mild pulmonary hypertension present (range 40-50 mmHg). Leonard Desai MD (Electronically Signed) Final Date:02 April 2017 19:12
[2017-04-02] MEDS: ATORVASTATIN 80 MG TAB PO SCH (20:37)
[2017-04-03] VITALS (15 sets, daily range): BP systolic 124–157; BP diastolic 71–100; PULSE 68–83; RESP 16–18; TEMP 97.4–97.8; O2SAT 97–100
[2017-04-03] MEDS: ISOSORBIDE MONONITRATE 30 MG TAB PO SCH (06:08)
[2017-04-03 06:58] LABS: HEMATOCRIT 39.8 % (39.0-51.0); MEAN CELL VOLUME 92.1 FL (80.0-100.0); MEAN CORPUSCULAR HEMOGLOBIN 30.5 PG (27.0-34.0); MEAN CORPUSCULAR HGB CONC 33.1 % (32.0-36.0); RED BLOOD COUNT 4.32 MIL/MM3 (4.50-5.90); RED CELL DISTRIBUTION WIDTH 14.4 % (11.6-17.2)
[2017-04-03 07:50] LABS: REVIEW FLAG FINAL
[2017-04-03] MEDS: THIAMINE HCL 100 MG TAB PO SCH (09:00)
[2017-04-03] MEDS: METOPROLOL TARTRATE 25 MG TAB PO SCH (09:27)
[2017-04-03] MEDS: LISINOPRIL 20 MG TAB PO SCH (09:27)
[2017-04-03] MEDS: MULTIVITAMINS/MINERALS THERAPEUTIC TAB PO SCH (09:27)
[2017-04-03] MEDS: FOLIC ACID 1 MG TAB PO SCH (09:27)
[2017-04-03] MEDS: NIFEdipine 30 MG SUSTAINED RELEASE TAB PO SCH (09:27)
[2017-04-03] MEDS: DOCUSATE SODIUM 50 MG/SENNA 8.6 MG TAB PO SCH (09:28)
[2017-04-03] MEDS: ASPIRIN EC 81 MG TABEC PO SCH (09:28)
[2017-04-03] MEDS: SODIUM CHLORIDE 0.9% FLUSH 10 ML FLUSH IV FLUSH SCH (09:28)
--- NOTE | 2017-04-03 10:42 | HHI.FPPN ---
Subjective Remarks Patient is doing well this morning. Denies chest pain, nausea, vomiting. He would like to go home. (Chris Nguyễn MD R2) Objective Vitals Vital Signs Date Time Temp Pulse Resp B/P Pulse Ox O2 Delivery O2 Flow Rate FiO2 04/03/17 07:01 75 04/03/17 06:00 82 04/03/17 05:00 68 04/03/17 04:00 72 04/03/17 03:50 97.4 72 16 124/71 97 04/03/17 03:00 74 04/03/17 02:07 78 04/03/17 01:00 70 04/03/17 00:00 83 04/02/17 23:40 97.7 72 16 128/88 98 04/02/17 23:00 71 04/02/17 22:00 74 04/02/17 21:00 80 04/02/17 20:30 97 Room Air 04/02/17 20:30 97.8 83 16 159/105 97 04/02/17 20:00 82 04/02/17 19:00 75 04/02/17 18:01 77 04/02/17 17:03 86 04/02/17 16:05 84 04/02/17 14:02 79 04/02/17 13:19 77 04/02/17 12:51 21 04/02/17 12:12 76 04/02/17 11:03 77 04/02/17 11:03 98 Room Air 04/02/17 11:03 97.4 83 18 152/102 98 I/O 04/02/17 04/02/17 04/02/17 04/03/17 04/03/17 04/03/17 07:00 15:00 23:00 07:00 15:00 23:00 Intake Total 960 ml 240 ml Output Total 100 ml Balance 960 ml 140 ml Intake Oral 960 ml 240 ml IV Total 0 ml Output Urine Total 100 ml # Voids 4 2 # Bowel Movements 2 0 (Chris Nguyễn MD R2) Result Diagram: 04/03/17 0530 04/02/17 1010 Objective Remarks O. CONSTITUTIONAL/GEN: obese, no acute distress. EYES: conjunctiva normal, sclerae injection,PERRLA, EOMI. ENT: Mouth and pharynx normal. Upper and lower dentures. NECK: No cervical lymphadenopathy LUNGS: clear A-P, respiratory effort is normal. CARDIOVASCULAR: Regular rate and rhythm with RADHA heard along left sternal border and at the apex. No significant edema. GI/ABD: Obese, scant bowel sounds, nontender to palpation. NEURO: No focal deficits. SKIN: hyperpigmentation of knees anteriorly, no rashes noted. HEME/LYMPH: no bruising, petechia or significant adenopathy MUSC: back is normal in appearance. Extremities are normal in appearance. PSYCH/MENTAL STATUS: Alert and oriented x 3. (Chris Nguyễn MD R2) A/P Assessment and Plan 56-year-old male with atypical chest pain concerning for cardiac origin. Elevated troponin. Cardiology consultation, Dr. Cardenas Discharge Planning Today (Chris Nguyễn MD R2) Attending Attestation Patient seen and examined. Case reviewed and discussed with the resident team. Agree with plan of care as discussed with me and documented in the resident note. he is doing well and has no pain or other problems. his echo may improve over time with remodeling as his BPs are low. he states he will be able to take his meds at home. (Kira Cain MD) Problem List: (1) Chest pain Status: Acute Plan: Cardiology consultation, Dr. Cardenas Continue Aspiring 81 milligrams daily Continue Lipitor Blood pressure management as below Myocardial perfusion scan shows no appreciable ischemia. Low risk category. Heart healthy diet LDL elevated to 127 TSH within normal limits Oxygen for sats less than 90% Morphine 2 mg IV chest pain Telemetry (2) Alcohol abuse Status: Acute Plan: [facility] protocol Multivitamin, thiamine, folic acid (3) Hypertensive urgency Status: Acute Plan: Blood pressure 216/145 on admission Blood pressure now controlled Continue medications per cardiology: Lisinopril 40 mg daily, metoprolol 25 mg by mouth twice a day, Procardia 30 mg daily, imdur 30 mg daily Echo shows ejection fraction 35-40%. Global hypokinesis. (4) FEN/PPX Status: Acute Plan: Fluids: Tolerating by mouth Electrolytes: Monitor and replace as needed Nutrition: Heart healthy diet Prophylaxis: Bilateral SCDs, ambulation (Chris Nguyễn MD R2) Chris Nguyễn MD R2 Apr 03, 2017 10:42 Kira Cain MD Apr 03, 2017 13:45
[2017-04-03] MEDS ORDERED: LISI-515 PO (10:43)
[2017-04-03] MEDS ORDERED: ISOS30TA3 PO (10:43)
--- NOTE | 2017-04-03 10:48 | HHI.DS ---
Discharge Summary Admission Date Mar 31, 2017 at 13:12 Discharge Date: Apr 03, 2017 Admitting Diagnosis chest pain, elevated troponin (1) Chest pain Diagnosis: Principal Plan: Cardiology consultation, Dr. Cardenas Continue Aspiring 81 milligrams daily Continue Lipitor Blood pressure management as below Myocardial perfusion scan shows no appreciable ischemia. Low risk category. Heart healthy diet LDL elevated to 127 TSH within normal limits Oxygen for sats less than 90% Morphine 2 mg IV chest pain Telemetry (2) Alcohol abuse Diagnosis: Secondary Plan: [facility] protocol Multivitamin, thiamine, folic acid (3) Hypertensive urgency Diagnosis: Principal Plan: Blood pressure 216/145 on admission Blood pressure now controlled Continue medications per cardiology: Lisinopril 40 mg daily, metoprolol 25 mg by mouth twice a day, Procardia 30 mg daily, imdur 30 mg daily Echo shows ejection fraction 35-40%. Global hypokinesis. (4) FEN/PPX Diagnosis: Secondary Plan: Fluids: Tolerating by mouth Electrolytes: Monitor and replace as needed Nutrition: Heart healthy diet Prophylaxis: Bilateral SCDs, ambulation Consultants Cardiology Procedures Myocardial perfusion scan Echo Brief History 56-year-old male without a previous extensive history (however he has not seen a doctor for multiple years) presents with a one to two-week history of chest pain. He was interviewed with his sister in the room. Patient reports a history of 2 weeks of chest pain. The pain is 4 out of 10 in intensity. Nonradiating. It will last 2-3 minutes and go away. It comes on mostly when lifting objects. He typically gets this pain 2-3 times a day. Occasionally, he will get this pain while resting on his couch. He does sometimes get diaphoretic with this. His fever, chills, nausea. He has been getting short of breath with relatively minor exertion. He does not exercise regularly. CBC/BMP: 04/03/17 0530 04/02/17 1010 Significant Findings Laboratory Tests Test 03/31/17 03/31/17 04/01/17 04/01/17 11:35 17:55 00:00 03:15 Mean Platelet Volume 11.6 FL (7.0-11.0) Platelet Morphology Comment ENLARGED (NORMAL) Activated Partial 23.6 SEC 31.0 SEC Thromboplast Time (24.3-30.1) (24.3-30.1) Chloride Level 109 MEQ/L (98-107) Troponin I 0.08 NG/ML 0.11 NG/ML 0.11 NG/ML (0.02-0.05) (0.02-0.05) (0.02-0.05) Albumin 3.3 GM/DL (3.4-5.0) Test 04/01/17 04/02/17 04/03/17 03:34 10:10 05:30 Red Blood Count 4.44 MIL/MM3 4.38 MIL/MM3 4.32 MIL/MM3 (4.50-5.90) (4.50-5.90) (4.50-5.90) Platelet Count 127 TH/MM3 114 TH/MM3 (150-450) (150-450) Platelet Estimate LOW (NORMAL) LOW (NORMAL) Platelet Morphology Comment ENLARGED ENLARGED (NORMAL) (NORMAL) Chloride Level 112 MEQ/L 112 MEQ/L (98-107) (98-107) Calcium Level 8.2 MG/DL (8.5-10.1) Total Bilirubin 1.1 MG/DL (0.2-1.0) Total Protein 6.3 GM/DL 6.2 GM/DL (6.4-8.2) (6.4-8.2) Albumin 2.9 GM/DL 2.9 GM/DL (3.4-5.0) (3.4-5.0) Cholesterol Level 207 MG/DL (120-200) LDL Cholesterol 127 MG/DL (0-99) Random Glucose 133 MG/DL (74-106) Magnesium Level 1.4 MG/DL (1.5-2.5) Mean Platelet Volume 11.6 FL (7.0-11.0) Imaging Last Impressions Myocardial Perfusion Scan Nuc Med 04/02/17 0000 Signed Impressions: Service Date/Time: Sunday, April 02, 2017 14:10 - CONCLUSION: No appreciable ischemia and reduction in ejection fraction. RISK CATEGORY: Low (<1%% Annual Mortality Rate) Lucrecia Marcial MD Chest X-Ray 03/31/17 1120 Signed Impressions: Service Date/Time: Friday, March 31, 2017 11:35 - CONCLUSION: 1. Advanced cardiomegaly. Justin Cruz MD PE at Discharge O. CONSTITUTIONAL/GEN: obese, no acute distress. EYES: conjunctiva normal, sclerae injection,PERRLA, EOMI. ENT: Mouth and pharynx normal. Upper and lower dentures. NECK: No cervical lymphadenopathy LUNGS: clear A-P, respiratory effort is normal. CARDIOVASCULAR: Regular rate and rhythm with RADHA heard along left sternal border and at the apex. No significant edema. GI/ABD: Obese, scant bowel sounds, nontender to palpation. NEURO: No focal deficits. SKIN: hyperpigmentation of knees anteriorly, no rashes noted. HEME/LYMPH: no bruising, petechia or significant adenopathy MUSC: back is normal in appearance. Extremities are normal in appearance. PSYCH/MENTAL STATUS: Alert and oriented x 3. Hospital Course Patient was diagnosed with hypertensive urgency causing elevated troponin. Cardiology was consulted. By the next day after admission, he was no longer having chest pain or major concerns. His blood pressure was managed with metoprolol 25 mg by mouth twice a day, lisinopril 40 mg daily, Procardia 30 mg daily. An echo was performed which showed reduced ejection fraction 35-40%. Myocardial perfusion scan showed no ischemia. The patient was started on the above medications also including Lipitor, baby aspirin. He understands the need to take these medications for his blood pressure and heart disease. 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 Pt Condition on Discharge: Fair Discharge Disposition: Discharge Home Discharge Instructions DIET: Follow Instructions for: Heart Healthy Diet Activities you can perform: Regular-No Restrictions Follow up Referrals: Cardiology - 2 Weeks with Jaylon Berry MD PCP Follow-up - 1 Week New Medications: Aspirin DR (Adult Aspirin EC Low Strength) 81 Mg Tabec 81 MG PO DAILY #30 TAB Atorvastatin (Atorvastatin) 80 Mg Tab 80 MG PO HS #30 TAB Isosorbide Mononitrate ER (Isosorbide Mononitrate ER) 30 Mg Shakeel 30 MG PO DAILY@07 #30 TAB Lisinopril (Lisinopril) 20 Mg Tab 40 MG PO DAILY #30 TAB Metoprolol Tartrate (Metoprolol Tartrate) 25 Mg Tab 25 MG PO BID #60 TAB Nifedipine ER 24 HR (Nifedipine ER 24 HR) 30 Mg Tab 30 MG PO DAILY #30 TAB Chris Nguyễn MD R2 Apr 03, 2017 10:48
[2017-04-03] MEDS ORDERED: MAGNESIUM SULFATE 1 GM PREMIX 100 ML IV SCH (11:00)
== END 2017-04-03 13:24 | disposition home or self-care (01) | DRG 305 ==
LOC: NEPE 10:48 → NEDA 13:12 → HCIS 19:58
PROVIDERS: ADMIT Family Medicine; ATTEND Family Medicine
DX: I11.9 Hypertensive heart disease without heart failure (principal); Z68.41 Body mass index [BMI] 40.0-44.9, adult; R07.89 Other chest pain; I45.10 Unspecified right bundle-branch block; R00.0 Tachycardia, unspecified; R74.8 Abnormal levels of other serum enzymes; I16.0 Hypertensive urgency; E66.9 Obesity, unspecified; E78.00 Pure hypercholesterolemia, unspecified; F10.10 Alcohol abuse, uncomplicated; Z82.49 Family history of ischemic heart disease and other diseases of the circulatory system; Z53.29 Procedure and treatment not carried out because of patient's decision for other reasons
CPT/HCPCS: 71010; 78452; 80053; 80061; 82272; 82550; 82552; 83690; 83735; 84443; 84484; 85025; 85027; 85610; 85730; 93005; 93017; 93306; 96361; 96374; A9502; J1644; J2785; J7030; J7040

== ENCOUNTER 2017-10-30 00:40 | Emergency (ER) | payer OTHER ==
[~2017-10-30] VITALS: Ht 147.3 cm; Wt 104.5 kg
[~2017-10-30 00:40] MED LIST changes: +ASPI1TAB56 PO; -ASPI325T PO; +ATOR80TA45 PO; +CHLO25TA2 PO; +ISOS30TA3 PO; +LISI-515 PO; -LORT5TAB PO; +METF500T PO; +METO50TA PO; +NIFE60TA58 PO; -NITR0.4S SL; -Z.0.NO CURRENT MEDS
[2017-10-30 00:42] VITALS: BP 220/107; PULSE 92; RESP 16; TEMP 98.4; O2SAT 97
[2017-10-30] MEDS ORDERED: ACETAMINOPHEN/CODEINE 300 MG/30 MG TAB PO ONE (01:45)
--- NOTE | 2017-10-30 02:06 | PD ---
HPI Chief Complaint: Pain: Acute or Chronic Time Seen by Provider: 01:09 Travel History International Travel<30 days: No Contact w/Intl Traveler<30days: No Traveled to known affect area: No History of Present Illness HPI Patient is a 56-year-old male presenting to the emergency department for evaluation of pain. Patient states the pain started almost 24 hours ago. He denies any injury or trauma. He states the pain just started suddenly. He states it's worse with ambulation but it occurs at rest as well. Symptom onset was sudden, there are no alleviating factors. Pain is exacerbated with movement. He denies any numbness or weakness in extremities, no bladder or bowel and cons, no saddle paresthesia. PFSH Past Medical History Asthma: No Heart Rhythm Problems: No Cancer: No Cardiovascular Problems: Yes High Cholesterol: Yes Chemotherapy: No Chest Pain: Yes Congestive Heart Failure: No COPD: No Diabetes: Yes Patient Takes Glucophage: Yes Diminished Hearing: No Endocrine: No Genitourinary: No Hypertension: Yes Immune Disorder: No Musculoskeletal: Yes (RIGHT ANKLE FX) Neurologic: No Psychiatric: No Reproductive: No Respiratory: No Radiation Therapy: No Sleep Apnea: No Past Surgical History Surgical History: No Previous Surgery AICD: No Arteriovenous Shunt: No Insulin Pump: No Joint Replacement: No Pacemaker: No Social History Alcohol Use: Yes (2-3 beers daily) Tobacco Use: No Substance Use: No Allergies-Medications (Allergen,Severity, Reaction): Coded Allergies: No Known Allergies (Verified Adverse Reaction, Unknown, 10/03/17) Reported Meds & Prescriptions Reported Meds & Active Scripts Active Nifedipine ER 24 HR (Nifedipine) 60 Mg Tab 60 Mg PO DAILY Isosorbide Mononitrate ER (Isosorbide Mononitrate) 30 Mg Shakeel 30 Mg PO DAILY@07 Chlorthalidone 25 Mg Tab 25 Mg PO DAILY One daily for BP Lisinopril 20 Mg Tab 40 Mg PO DAILY Metformin (Metformin HCl) 500 Mg Tab 500 Mg PO BIDPC With meals Atorvastatin (Atorvastatin Calcium) 80 Mg Tab 80 Mg PO HS Metoprolol Tartrate 50 Mg Tab 50 Mg PO BID Adult Aspirin EC Low Strength (Aspirin) 81 Mg Tabec 81 Mg PO DAILY Review of Systems Except as stated in HPI: all other systems reviewed are Neg Musculoskeletal: Positive: Myalgias, Pain Physical Exam Narrative GENERAL: Well-developed, well-nourished, alert male. Presenting in no acute distress. SKIN: Warm and dry. HEAD: Normocephalic. EYES: No scleral icterus. No injection or drainage. NECK: Supple, trachea midline. No JVD or lymphadenopathy. CARDIOVASCULAR: Regular rate and rhythm without murmurs, gallops, or rubs. RESPIRATORY: Breath sounds equal bilaterally. No accessory muscle use. GASTROINTESTINAL: Abdomen soft, non-tender, nondistended. MUSCULOSKELETAL: No cyanosis, or edema. Tenderness to palpation lateral aspect of right hip. No ecchymosis, no obvious deformities. No leg length discrepancy. 2+ dorsalis pedal pulse. BACK: Nontender without obvious deformity. No CVA tenderness. Data Data Last Documented VS Vital Signs Date Time Temp Pulse Resp B/P (MAP) Pulse Ox O2 Delivery O2 Flow Rate FiO2 10/30/17 00:42 98.4 92 16 220/107 (144) 97 Room Air Orders Orders Acetamin-Codeine 300-30 Mg (Tylenol-Code (10/30/17 01:45) Hip, Uni(Ap&Lat) W Ap Pelvis (10/30/17 ) MDM Medical Decision Making Medical Screen Exam Complete: Yes Emergency Medical Condition: Yes Interpretation(s) Vital Signs Date Time Temp Pulse Resp B/P (MAP) Pulse Ox O2 Delivery O2 Flow Rate FiO2 10/30/17 00:42 98.4 92 16 220/107 (144) 97 Room Air Differential Diagnosis Bursitis versus strain versus spasm versus less likely fracture Narrative Course Patient presented with 1 day of right hip pain, there was no preceding injury or trauma. Patient is neurovascularly intact. Blood pressure is elevated on arrival, patient has not taken his evening blood pressure medications. Patient is no other complaints at this time. X-ray ordered and pending. Patient given Tylenol 3 for pain. X-ray of the right hip shows no acute disease. Patient will be discharged home with Lidoderm patches and pain medication he is encouraged to follow-up with his primary doctor. He was encouraged to continue range of motion exercises, apply warm heat to affected area and avoid exacerbating activities. Patient was encouraged follow-up with his primary doctor for further evaluation management. He was reassured at this time that there were no acute findings. Patient is stable for discharge. Patient was hypertensive on arrival, his blood pressure was reassessed prior to discharge it had normalized. Patient was encouraged to take medications as prescribed, avoid skipping doses to avoid rebound hypertension. Diagnosis Primary Impression: Hip pain, right Referrals: Primary Care Physician Patient Instructions: General Instructions, Hip Pain (ED) Additional Instructions: Alternate heat and ice to affected area Take medications as directed Avoid exacerbating activities Follow-up with her primary doctor Return to emergency department for any new or worsening symptoms Med/Other Pt SpecificInfo: Prescription(s) given Scripts Acetaminophen-Codeine (Tylenol-Codeine #3) 300-30 mg Tab 1 TAB PO Q6H Y for PAIN, #12 TAB 0 Refills Prov: Lorie Alonso 10/30/17 Lidocaine (Lidoderm) 5 % Adh..patch 1 PATCH TOPICAL DAILY Y for PAIN SCALE 1 TO 10 for 10 Days Prov: Lorie Alonso 10/30/17 Disposition: 01 DISCHARGE HOME Condition: Stable Lorie Alonso Oct 30, 2017 02:06
--- NOTE | 2017-10-30 02:10 | RADRPT ---
EXAM DATE/TIME: 10/30/2017 01:51 [facility] COMPARISON: No previous studies available for comparison. INDICATIONS : Right hip pain for one day with no known trauma. MEDICAL HISTORY : Hypercholesterolemia. Hypertension SURGICAL HISTORY : None. ENCOUNTER: Initial ACUITY: 1 day PAIN SCORE: 8/10 LOCATION: Right hip FINDINGS: Examination of the right hip was performed with AP Pelvis. The primary and secondary trabecular philly shun of the femoral neck is intact. The hip joint is of normal width without significant sclerosis or bony hypertrophy. The acetabulum is grossly intact. CONCLUSION: No acute disease. Tae Ojeda MD on October 30, 2017 at 2:09 Board Certified Radiologist. This report was verified electronically.
[2017-10-30 02:21] VITALS: BP 159/90; PULSE 74; RESP 18; O2SAT 98
[2017-10-30] MEDS ORDERED: LIDO1ADH4 TOPICAL (02:22)
[2017-10-30] MEDS ORDERED: TYLETAB34 PO (02:22)
== END 2017-10-30 02:42 | disposition home or self-care (01) ==
LOC: NEPD 00:40
DX: M25.551 Pain in right hip (principal); E78.00 Pure hypercholesterolemia, unspecified; E11.9 Type 2 diabetes mellitus without complications; I10 Essential (primary) hypertension; Z79.82 Long term (current) use of aspirin; Z79.84 Long term (current) use of oral hypoglycemic drugs
CPT/HCPCS: 73502; 99283